=== PATIENT | male | born 1960 | race Caucasian/White ===

== ENCOUNTER → 2020-01-22 | Day surgery (SDC) | payer OTHER ==
[2020-01-21 11:02] VITALS: BMI 25.7
[~2020-01-22] MED LIST: LACTATED RINGERS 1,000 ML IV ONE; LIDOCAINE 1% (10MG/ML) FOR IV START INTRADERMA ONE; PROPOFOL 10 MG/ML 20 ML VIAL IV ONE
[2020-01-22 06:58] VITALS: TEMP 97.8
[2020-01-22 07:10] LABS: Glucose,Whole Blood 111 mg/dL (75-99)
--- NOTE | 2020-01-22 08:18 | P.PCN ---
Date of Procedure: 01/22/20 Description of Procedure: BRIEF HISTORY: Patient is a 59-year-old male presenting for outpatient colonoscopy for screening for malignant neoplasm of the colon. He does report prior colonoscopy approximately 5 years ago. He does report polyps in the past. Recently he has had worsening constipation which she associates with a new diabetic medication. PROCEDURE PERFORMED: Colonoscopy. PREOPERATIVE DIAGNOSIS: Screening for malignant neoplasm of the colon, last colonoscopy 5 years ago, change in bowel habits, constipation. ESTIMATED BLOOD LOSS: Minimal. IV sedation per Anesthesia. PROCEDURE: After informed consent was obtained, the patient, was brought into the endoscopy unit. IV sedation was administered by Anesthesia under continuous monitoring. Digital rectal examination was normal. Initially the Olympus CF-190 flexible video colonoscope was then inserted in the rectum, gradually advanced into the cecum without any difficulty. Careful examination was performed as the scope was gradually being withdrawn. Ileocecal valve and the appendiceal orifice were vis ualized and appeared normal. Prep was excellent. Mucosa of the cecum, ascending colon, transverse colon, descending colon, sigmoid colon, and rectum appeared normal and normal-appearing terminal ileum . Retroflexion was performed in the rectum and no lesions were seen, Low-grade internal hemorrhoids seen. The patient tolerated the procedure well. IMPRESSION: Normal-appearing colon from rectum to cecum and normal-appearing terminal ileum. RECOMMENDATIONS: Findings of this examination were discussed with the patient and his family. Okay to resume diet. Okay to resume medications. Recommend repeat colonoscopy in 10 years or sooner if signs or symptoms which warrant further evaluation of develop. Discussion with the patient regarding symptoms of constipation and recommended daily MiraLAX or fiber therapy.
[2020-01-22 08:20] VITALS: RESP 16
[2020-01-22 08:34] VITALS: BP 134/89; PULSE 92
== END ==
LOC: ORWHC2ENDO 06:41
PROVIDERS: ATTEND Internal Medicine
DX: R19.4 Change in bowel habit (principal); K59.00 Constipation, unspecified; K64.8 Other hemorrhoids; E11.9 Type 2 diabetes mellitus without complications; Z86.010 Personal history of colon polyps; Z98.890 Other specified postprocedural states; Z79.84 Long term (current) use of oral hypoglycemic drugs; Z79.899 Other long term (current) drug therapy; Z90.49 Acquired absence of other specified parts of digestive tract; Z87.19 Personal history of other diseases of the digestive system
CPT/HCPCS: 45378; J2704

== ENCOUNTER → 2020-02-02 | Outpatient (CLI) | payer OTHER ==
--- NOTE | 2020-02-02 08:16 | US ---
EXAMINATION TYPE: US prostate transrectal DATE OF EXAM: 02/02/2020 COMPARISON: NONE CLINICAL HISTORY: R97.20 ELEVATED psa. enlarged gland on digital exam This examination was performed using the transrectal probe. EXAM MEASUREMENTS: Gland Size: 5.4 x 5.9 x 5.7cm Volume: 95.8 Predicted PSA: 11.5 Actual PSA (if available):6.8 Enlarged gland with no obvious focal abnormality seen . Seminal vesicles are bilaterally symmetric an d unremarkable. IMPRESSION: Enlarged prostate gland. Otherwise unremarkable study. Predicted PSA = volume x 0.12 ng/ml Calculated Volume = 0.5236 x L x W x H
== END | disposition home or self-care (01) ==
LOC: RADUSWWP 06:57
PROVIDERS: ATTEND Family Medicine
DX: N40.0 Benign prostatic hyperplasia without lower urinary tract symptoms (principal)
CPT/HCPCS: 76872